=== PATIENT | female | born 1970 | race Caucasian/White ===

== ENCOUNTER → 2020-08-26 14:58 | Outpatient (BNVA) | payer MEDICARE, SELFPAY | PROVIDERS: Visit Provider Anesthesiology | DX: G89.4 Chronic pain syndrome (principal); M51.36 Other intervertebral disc degeneration, lumbar region; G35 Multiple sclerosis; Z79.891 Long term (current) use of opiate analgesic | CPT/HCPCS: 99212 ==

== ENCOUNTER 2020-10-19 05:11 | Outpatient (REF) | payer MEDICARE, SELFPAY | END 2020-10-19 05:12 | disposition home or self-care (01) | LOC: HO.RADIR 05:11 | PROVIDERS: Visit Provider Anesthesiology | DX: Z13.89 Encounter for screening for other disorder (principal) ==

== ENCOUNTER 2021-01-18 06:05 | Outpatient (REF) | payer MEDICARE, SELFPAY | END 2021-01-18 06:06 | disposition home or self-care (01) | LOC: HO.RADIR 06:05 | PROVIDERS: Visit Provider Anesthesiology | DX: Z13.89 Encounter for screening for other disorder (principal) ==

== ENCOUNTER 2021-04-12 06:28 | Outpatient (REF) | payer MEDICARE, SELFPAY | END 2021-04-12 06:29 | disposition home or self-care (01) | LOC: HO.RADIR 06:28 | PROVIDERS: Visit Provider Anesthesiology | DX: Z13.89 Encounter for screening for other disorder (principal) ==

== ENCOUNTER 2021-06-24 09:33 | Day surgery (SDC) | payer MEDICARE, OTHER, SELFPAY ==
--- NOTE | 2021-06-23 09:22 | HO.ANESPROP2 ---
Documented by User: Aixa Hernandez NP 06/23/21 09:24 HPI - Anesthesia Eval Consult details Narrative: 50yo F for Intrathecal Drug Delivery Replacement PMFSH Active Problems Active Problems: All Active Problems (Updated 08/26/20 @ 15:43 by Ravi Garibay MD) terminal make up operator (current) use of opiate analgesic (Acute) Chronic pain syndrome (Acute) Multiple sclerosis (Acute) Disc degeneration, lumbar (Acute) Past Medical History Medical History Chronic pain syndrome Disc degeneration, lumbar senior living (current) use of opiate analgesic Multiple sclerosis Social History Social History Patient Tobacco Use Status: Current everyday Tobacco user Use of substances other than those prescribed or required for medical reasons: No Have you been hit, kicked, punched, or otherwise hurt by someone within the past year? If so, by whom?: No Are you DNR?: No Advance Directives: No Advance Directives Information Provided: Yes Recently lost weight without trying: No Patient : No Meds Allergies Allergy/AdvReac Type Severity Reaction Status Date / Time Iodinated Contrast Media Allergy Severe Swelling Verified 06/24/21 10:23 [Contrast Dye] amitriptyline Allergy unknown Verified 08/26/20 15:08 hydrocodone Allergy unknwn Verified 08/26/20 15:08 ibuprofen Allergy unknown Verified 08/26/20 15:08 nabumetone Allergy unknown Verified 08/26/20 15:08 Home Medications Medication Instructions Recorded Confirmed Last Taken Type loperamide 2 mg capsule 1 cap PO TID PRN 06/17/21 06/17/21 Unknown History Exam Exam Date and Time: June 23, [id number] Assessment and Plan Assessment Anesthesia Assessment: Chart Reviewed Documented by User: Destinee Huffman MD 06/24/21 11:22 PMFSH Past Medical History Medical History Chronic pain syndrome Disc degeneration, 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 If so, by whom?: No Are you DNR?: No Advance Directives: No Advance Directives Information Provided: Yes Recently lost weight without trying: No Patient : No Meds Allergies Allergy/AdvReac Type Severity Reaction Status Date / Time Iodinated Contrast Media Allergy Severe Swelling Verified 06/24/21 10:23 [Contrast Dye] amitriptyline Allergy unknown Verified 08/26/20 15:08 hydrocodone Allergy unknwn Verified 08/26/20 15:08 ibuprofen Allergy unknown Verified 08/26/20 15:08 nabumetone Allergy unknown Verified 08/26/20 15:08 Home Medications Medication Instructions Recorded Confirmed Last Taken Type loperamide 2 mg capsule 1 cap PO TID PRN 06/17/21 06/17/21 Unknown History Exam Airway Mallampati Class: II TM Dist: >3cm Neck ROM: Full Assessment and Plan Assessment Anesthesia Assessment: Anesthesia Plan Discussed Final Anesthetic Review Family History of Problems with Anesthesia: No History of Problems with Anesthesia: No NPO: Yes ASA Class: III Final Preanesthetic Review: No Changes in Pt Med Stat, Meds/Allgs Chart Reviewed, Consent Obtained/Reviewed and Anes Risks/Benef Reviewed Patient Risk: Intermediate Procedure Risk: Low Anesthetic Plan Anesthetic Plan: GA Disposition: Standard PACU
--- NOTE | ~2021-06-24 | FL_ITS ---
EXAMINATION: XR FLUOROSCOPY WITH IMAGES CLINICAL INFORMATION: IDD replacement. COMPARISON: None. TECHNIQUE: Fluoroscopy performed by Dr. Ravi Garibay. Fluoroscopy time: 0.0 minutes DAP: 0.0255 mGycm2 Images: 1 FINDINGS: The submitted image shows an intrathecal pain pump projecting over the right lumbosacral region. FL/FL guidance in OR IMPRESSION: Intraoperative fluoroscopic guidance is provided during intrathecal pain pump replacement. Please see Operative Report for full procedural details.
[2021-06-24 09:46] VITALS: BP 156/97; PULSE 77; RESP 18; TEMP 36.4; O2SAT 97; BMI 36.5
--- NOTE | 2021-06-24 10:01 | MHC.SHP ---
Pre-Procedural Eval Section A Date of Service: 06/24/21 The patient is an INPATIENT: No Changes since office visit: Yes Patient answered all questions The History & Physical has been completed within 30 days and I have reviewed it.: No Section B Chief Complaint: chronic pain syndrome Details of Present Illness: As above Relevant Family History (Specify if Yes): No Relevant Social History: None Present Medications: see Short Stay Collaborative assessment Medical History: No relevant PMH History of Previous Operations: No relevant previous surgery Allergies: Allergies Allergy/AdvReac Type Severity Reaction Status Date / Time amitriptyline Allergy unknown Verified 08/26/20 15:08 hydrocodone Allergy unknwn Verified 08/26/20 15:08 ibuprofen Allergy unknown Verified 08/26/20 15:08 nabumetone Allergy unknown Verified 08/26/20 15:08 Review of Systems Sugical H&P ROS: Negative: Constitution, Cardiovascular, Respiratory, Neurological, Psychiatric, Hem-Onc, Allergic/Immunologic, Gastrointestinal, Genitourinary, Musculoskeletal, Integumentary, Endocrine and Eyes/Ears/Nose/Throat Exam Surgical H&P Exam: Normal: HEENT, Normal: Heart, Normal: Lungs, Normal: Extremities, Normal: Abdomen, Normal: Skin and Normal: Neurological Plan Diagnosis/Plan: Unchanged I have reviewed the history and physical and performed a pertinent physical examination on my patient. No changes have occurred unless specified.
[2021-06-24 10:03] LABS: UPreg QC Valid YES; Urine Pregnancy NEGATIVE (NEGATIVE)
[2021-06-24] MEDS: Lactated Ringers 1,000 ML 100 ML IVCONT (10:03)
--- NOTE | 2021-06-24 11:45 | MHC.SHP ---
Pre-Procedural Eval Section A Date of Service: 06/24/21 The patient is an INPATIENT: No Changes since office visit: Yes Patient answered all questions The History & Physical has been completed within 30 days and I have reviewed it.: No Section B Chief Complaint: chronic pain syndrome Details of Present Illness: This patient is 50 years old female who is suffering from chronic pain syndrome which is being treated by intrathecal drug delivery system pain pump. She came today to the operating room for replacement of the pump. Her intrathecal catheter seem to be working appropriately. She is on 66 micro g of fentanyl daily and it helps a lot her condition Relevant Family History (Specify if Yes): No Relevant Social History: None Present Medications: None Medical History: No relevant PMH History of Previous Operations: No relevant previous surgery Allergies: Allergies Allergy/AdvReac Type Severity Reaction Status Date / Time Iodinated Contrast Media Allergy Severe Swelling Verified 06/24/21 10:23 [Contrast Dye] amitriptyline Allergy unknown Verified 08/26/20 15:08 hydrocodone Allergy unknwn Verified 08/26/20 15:08 ibuprofen Allergy unknown Verified 08/26/20 15:08 nabumetone Allergy unknown Verified 08/26/20 15:08 Review of Systems Sugical H&P ROS: Negative: Constitution, Cardiovascular, Respiratory, Neurological, Psychiatric, Hem-Onc, Allergic/Immunologic, Gastrointestinal, Genitourinary, Musculoskeletal, Integumentary, Endocrine and Eyes/Ears/Nose/Throat Exam Surgical H&P Exam: Normal: HEENT, Normal: Heart, Normal: Lungs, Normal: Extremities, Normal: Abdomen, Normal: Skin and Normal: Neurological Plan Diagnosis/Plan: Unchanged I have reviewed the history and physical and performed a pertinent physical examination on my patient. No changes have occurred unless specified.
[2021-06-24 13:20] VITALS: BP 152/96; PULSE 88; RESP 20; TEMP 36.3; O2SAT 99
--- NOTE | 2021-06-24 13:22 | PM.OP ---
Brief Operative Note Date of Service: 06/24/21 Surgeon: Ravi Garibay MD Anesthesia: GETA Was an Business Reporter used for this Procedure?: No Estimated blood loss (mL): 30 Pathology: none sent Condition: stable Disposition: PACU
--- NOTE | 2021-06-24 13:23 | P.OP_ITS ---
Operative Note Operative Note Date of Service: 06/24/21 Narrative: Alejandro is very pleasant 50 years old female who came today to the operating room compound for replacement of intrathecal drug delivery system pain pump due to end of life of the previous pump device. After explaining formed consent the patient was taking to the operating room and [place] [employer] was applied. General anesthesia was induced with endotracheal intubation performed. The patient was repositioned prone on the operating table. All pressure points were protected. Time-out was was performed delineating correct name date of of the patient correct site and side of the procedure need for DVT prophylaxis need for antibiotic prophylaxis, risk of fire. The lower back of the patient in the area of the patient's pump in the upper right buttock were prepped with ChloraPrep and draped with full body drape including Ioban film. After that sterilely draped C-arm was brought of the operating field and picture of the patient's pump was demonstrated on the screen. After that local anesthetic was injected in projection of the previously made scar. Ten blade scalpel was used to make incision along side the previous scar. The wound was deepened and widened using electrocautery dissection until the body of the pump was discovered. The anchoring sutures were severed and the pump was delivered to the surface of the skin. Intrathecal catheter was freed from adhesions and disconnected from the pump. Thorough hemostasis on the wound was performed again and regain lombardi was performed on the wound and cut with vancomycin containing normal saline. After that the intrathecal catheter was freed from adhesions and connective tissue it appears to be that clear flow CSF was coming from the catheter. New pump which was filled with 19 cc of fentanyl solution preservative-free 450 micro g per mL was brought on the operating table and prepped to be ready for implantation. Sutureless connector was connected to the speak it of the pump, noncoring 25 gauge needle was used to aspirate side port of the pump demonstrating fluid flow CSF. After that 2 anchoring sutures were applied to most superior lateral insist most superior medial corners of the wound they were passed through the corresponding brackets on the body of the pump. After that the intrathecal pump was dislodged into the wound and anchoring sutures were tied. The anchor sutures were Tycron 1.0. After that the side port of the pump was again accessed with 25 gauge noncoring needle mounted on 3 cc syringe in aspiration was made demonstrating free flow CSF. Hemostasis was checked and thorough irrigation was repeated. After that 0 Polysorb sutures was used to close the pocket of the pump and 2 0 Polysorb sutures were used to approximate the level of the skin. [place] were applied to the level of the skin. Bacitracin was applied to staple level. Sterile dressing with Tegaderm was applied. The patient tolerated procedure fairly well. She was extubated transferred to PACU for recovery she recovered uneventfully. She went home without immediate complications.
[2021-06-24 13:25] VITALS: BP 156/81; PULSE 85; RESP 18; O2SAT 98
[2021-06-24 13:30] VITALS: BP 154/75; PULSE 79; RESP 20; O2SAT 100
[2021-06-24 13:35] VITALS: BP 149/68; PULSE 82; RESP 20; O2SAT 100
[2021-06-24 13:50] VITALS: BP 150/87; PULSE 74; RESP 20; TEMP 36.3; O2SAT 99
== END 2021-06-24 14:12 | disposition home or self-care (01) ==
PROVIDERS: Nurse Practitioner; Visit Provider Anesthesiology
PROC: (CPT 62362; principal; 2021-06-24 11:00)
DX: G89.4 Chronic pain syndrome (principal); M51.36 Other intervertebral disc degeneration, lumbar region; G35 Multiple sclerosis; Z79.891 Long term (current) use of opiate analgesic
CPT/HCPCS: 62362; 81025; C1772; J0690; J1100; J2250; J2405; J3010; J3370

== ENCOUNTER → 2021-06-30 09:06 | Outpatient (BNVA) | payer MEDICARE, OTHER, SELFPAY | PROVIDERS: Visit Provider Anesthesiology | DX: M51.36 Other intervertebral disc degeneration, lumbar region (principal); G35 Multiple sclerosis; G89.4 Chronic pain syndrome; Z79.891 Long term (current) use of opiate analgesic | CPT/HCPCS: 99212 ==

== ENCOUNTER → 2021-07-07 09:29 | Outpatient (BNVA) | payer MEDICARE, OTHER, SELFPAY | PROVIDERS: Visit Provider Anesthesiology | DX: M51.36 Other intervertebral disc degeneration, lumbar region (principal); G35 Multiple sclerosis; G89.4 Chronic pain syndrome; Z79.891 Long term (current) use of opiate analgesic | CPT/HCPCS: 99212 ==

== ENCOUNTER → 2022-10-16 10:26 | Outpatient (BNVA) | payer MEDICARE, MEDICAID, SELFPAY | PROVIDERS: Visit Provider Anesthesiology | DX: M51.36 Other intervertebral disc degeneration, lumbar region (principal); G35 Multiple sclerosis; G89.4 Chronic pain syndrome; Z79.891 Long term (current) use of opiate analgesic | CPT/HCPCS: 99212 ==

== ENCOUNTER 2023-11-05 09:57 | Outpatient (AMB) | payer MEDICARE, MEDICAID, SELFPAY ==
--- NOTE | 2023-11-05 10:20 | MHC.OFFVIS ---
Intake Vital Signs 11/05/23 10:21 Height 5 ft 8 in Weight 237 lb 2 oz BMI 36.1 BP 140/102 H Blood Pressure Location Rt brachial Position Sitting Respiration 14 Pulse 83 Pulse Source Pulse Oximeter Pulse Oximetry (%) 97 Oxygen Delivery Method Room Air Intake Visit Reasons: 1 Y Follow up Allergies Iodinated Contrast Media [Contrast Dye] Allergy (Severe, Verified 11/05/23 10:21) Swelling amitriptyline Allergy (Verified 11/05/23 10:21) unknown hydrocodone Allergy (Verified 11/05/23 10:21) unknwn ibuprofen Allergy (Verified 11/05/23 10:21) unknown nabumetone Allergy (Verified 11/05/23 10:21) unknown HPI HPI Comments History of Present Illness Details Alejandro is very pleasant 49 years old female who presents in my office with complains on lower back pain which was treated with intrathecal drug delivery system pain pump.? The pump was inserted in [place], it was due to be replaced in this year so she went for the removal of the old pump due to end of life of the machine and replacement with the new SynchroMed 2 [employer] pain pump. Her pump is being refilled at home. She is receiving tizanidine and gabapentin from this office. Requests me to renew those medications. It was refilled 1 year ago. She denies any side effects. She denies weakness, drowsiness dizziness, sleepiness. She denies peripheral edema. Prior: she reports that symptoms are aggravated by walking and movement and relieved by lying down and medication in the pump.? She is doing regularly refills once in 3 months.? The concentration of the medication in the pump is 450 micro g of fentanyl perform mL she is receiving 66 micro g of fentanyl a day and she is able to do to PTM doses a day 0.06 micro g of fentanyl a day.? She can delivered those doses to herself 4 hours apart.? 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 Multiple sclerosis Social History Patient Tobacco Use Status: Current everyday Tobacco user Review of Systems Const All systems reviewed & are unremarkable except as noted in HPI and below ENT Reports Normal hearing present Neuro Reports Normal hearing present Physical Exam Vital Signs: Last Vital Signs Pulse 83 11/05/23 10:21 Resp 14 11/05/23 10:21 BP 140/102 H 11/05/23 10:21 Pulse Ox 97 11/05/23 10:21 Oxygen Delivery Method Room Air 11/05/23 10:21 BMI result Body Mass Index 36.1 Const General: comfortable, alert and awake Eyes Pupils: Equal, round and reactive pupils present EOM: EOMs intact bilaterally Chest Chest palpation & inspection: normal inspection of the chest Resp Effort & Inspection: able to speak in complete sentences, normal respiratory pattern, no audible wheezes and no cough Cardio Jugular venous distension: no JVD General: Yes no CVA tenderness Back/Spine/Pelvis Back: no CVA tenderness Cervical Spine: No pain with cervical ROM Thoracic/Lumbar Spine: Thoracic/lumbar spine scar(s) ( ) Neuro Cranial nerves: Yes Equal, round and reactive pupils present and Yes Normal hearing present Extrem General: Yes full ROM and Yes no joint enlargement Assessment & Plan Assessment & Plan (1) Disc degeneration, lumbar: Code(s): M51.36 - Other intervertebral disc degeneration, lumbar region (2) Multiple sclerosis: Code(s): G35 - Multiple sclerosis (3) Chronic pain syndrome: Code(s): G89.4 - Chronic pain syndrome (4) 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 I will see her as needed as well as in 1 year. 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
[2023-11-05 10:21] VITALS: BP 140/102; PULSE 83; RESP 14; O2SAT 97; BMI 36.1
== END 2023-11-05 10:26 | disposition home or self-care (01) ==
PROVIDERS: PCP Internal Medicine; Referring Provider Internal Medicine; Visit Provider Anesthesiology
DX: G89.4 Chronic pain syndrome (principal); G35 Multiple sclerosis; M51.36 Other intervertebral disc degeneration, lumbar region; Z79.891 Long term (current) use of opiate analgesic
CPT/HCPCS: 99213

== ENCOUNTER → 2023-11-05 09:57 | Outpatient (BNVA) | payer MEDICARE, MEDICAID, SELFPAY | PROVIDERS: PCP Internal Medicine; Visit Provider Anesthesiology | DX: M51.36 Other intervertebral disc degeneration, lumbar region (principal); G35 Multiple sclerosis; G89.4 Chronic pain syndrome; Z79.891 Long term (current) use of opiate analgesic | CPT/HCPCS: 99212 ==

== ENCOUNTER 2024-09-29 13:01 | Outpatient (AMB) | payer MEDICARE, MEDICAID, SELFPAY ==
--- NOTE | 2024-09-29 13:01 | A.OFFVIS_ITS ---
Vital Signs 09/29/24 13:41 Height 5 ft 8 in Weight 219 lb BMI 33.3 BP 139/79 Blood Pressure Location Lt brachial Position Sitting Respiration 16 Pulse 78 Pulse Source Pulse Oximeter Pulse Oximetry (%) 96 Oxygen Delivery Method Room Air Intake Visit Reasons: Pain pump refill Intake Note: Patient comes in for intrathecal medication refill. Reports pain 5/10. Allergies Iodinated Contrast Media [Contrast Dye] Allergy (Severe, Verified 09/29/24 13:42) Swelling amitriptyline Allergy (Verified 09/29/24 13:42) unknown hydrocodone Allergy (Verified 09/29/24 13:42) unknwn ibuprofen Allergy (Verified 09/29/24 13:42) unknown nabumetone Allergy (Verified 09/29/24 13:42) unknown HPI Comments Details: Alejandro is back in my office to receive intrathecal pain pump. The pump is for lower back pain, inserted in [place], the replacement of the pump is done by me at 06/24/2021. It is SynchroMed 2 machine. She no longer is in home refilled program and she will be coming to this office to refill her pain pump. She feels very comfortable with current infusion. Prior: she reports that symptoms are aggravated by walking and movement and relieved by lying down and medication in the pump.? She is doing regularly refills once in 3 months.? The concentration of the medication in the pump is 450 micro g of fentanyl perform mL she is receiving 66 micro g of fentanyl a day and she is able to do to PTM doses a day 0.06 micro g of fentanyl a day.? She can delivered those doses to herself 4 hours apart.? Her refill date at maximum activation [facility] Medical History Chronic pain syndrome Disc degeneration, lumbar half-way (current) use of opiate analgesic Multiple sclerosis Social History Patient Tobacco Use Status: Current everyday Tobacco user Review of Systems Const All systems reviewed & are unremarkable except as noted in HPI and below ENT Reports Normal hearing present Neuro Reports Normal hearing present Physical Exam Const General: comfortable, alert and awake Eyes Pupils: Equal, round and reactive pupils present EOM: EOMs intact bilaterally Chest Chest palpation & inspection: normal inspection of the chest Resp Effort & Inspection: able to speak in complete sentences, normal respiratory pattern, no audible wheezes and no cough Cardio Jugular venous distension: no JVD General: Yes no CVA tenderness Back/Spine/Pelvis Back: no CVA tenderness Cervical Spine: No pain with cervical ROM Thoracic/Lumbar Spine: Thoracic/lumbar spine scar(s) ( ) Neuro Cranial nerves: Yes Equal, round and reactive pupils present and Yes Normal hearing present Extrem General: Yes full ROM and Yes no joint enlargement Assessment & Plan Assessment & Plan (1) Disc degeneration, lumbar: Code(s): M51.36 - Other intervertebral disc degeneration, lumbar region Category: Medical (2) Multiple sclerosis: Code(s): G35 - Multiple sclerosis Category: Medical (3) Chronic pain syndrome: Code(s): G89.4 - Chronic pain syndrome Category: Medical (4) half-way (current) use of opiate analgesic: Code(s): Z79.891 - half-way (current) use of opiate analgesic Category: Medical Plan: Next pump refill will be scheduled on 12/28/2024, she will receive her usual dose of fentanyl concentration 450 micro g per mL in 20 mL of preservative-free normal saline. Plan Intrathecal pump refill. THE PATIENT CAME TODAY IN THE OR - PACU FOR THE CHANGE OF THE MEDICATION IN her PAIN PUMP. The name and date of were verified and informed consent was obtained for the procedure. The pump was interrogated and the residual amount of fluid was found to be 7.4 mL. SHE WAS POSITIONED right side up lateral on the bed AND THE AREA OF THE INTRATHECAL PUMP WAS PREPPED WITH CHLORAPREP. The fenestrated drape was sterilely applied over the area of the pump. Sterile gloves were worn and of the aspiration system was assembled containing 2 in 22 gauge noncoring needle, the needle was connected to extension tubing which was connected to the 20 cc sterile syringe. The pain pump was palpated under the skin in the patient's right buttock area. The needle was inserted through the skin and the central plug of the pain pump and fluid was aspirated. two attempts were made to reach the silicone plug of the pump.The clear fluid was going into the syringe the total amount of the fluid was 7.2 mL .. After that a new batch of medication was obtained . The admixture was made in 20 cc syringe prepared by [facility] compounding pharmacy. The syringe was connected to the bacterial filter, and then connected to the extension tubing. After that the medication in the syringe was slowly instilled into the pump with aspirations at 15 and 5 cc davis. Patient receives 66 micro g of fentanyl in 24 hours, she is able to receive bolus of 0.06 micro g of fentanyl up to 2 boluses a day. Coding Level of Care Code Est Pt Level 3 (05661) Procedure Only Diagnoses Disc degeneration, lumbar M51.36 Multiple sclerosis G35 Chronic pain syndrome G89.4 terminal superintendent (current) use of opiate analgesic Z79.891
[2024-09-29 13:41] VITALS: BP 139/79; PULSE 78; RESP 16; O2SAT 96; BMI 33.3
== END 2024-09-29 13:35 | disposition home or self-care (01) ==
PROVIDERS: PCP Internal Medicine; Visit Provider Anesthesiology
DX: M51.369 Other intervertebral disc degeneration, lumbar region without mention of lumbar back pain or lower extremity pain (principal); G35 Multiple sclerosis; G89.4 Chronic pain syndrome; Z79.891 Long term (current) use of opiate analgesic; Z45.1 Encounter for adjustment and management of infusion pump
CPT/HCPCS: 95991; 99213

== ENCOUNTER → 2024-09-29 13:01 | Outpatient (BNVA) | payer MEDICARE, MEDICAID, SELFPAY | PROVIDERS: PCP Internal Medicine; Visit Provider Anesthesiology | DX: M51.369 Other intervertebral disc degeneration, lumbar region without mention of lumbar back pain or lower extremity pain (principal); G35 Multiple sclerosis; G89.4 Chronic pain syndrome; Z45.1 Encounter for adjustment and management of infusion pump; Z79.891 Long term (current) use of opiate analgesic | CPT/HCPCS: 99212 ==

== ENCOUNTER 2024-12-29 13:02 | Outpatient (AMB) | payer MEDICARE, MEDICAID, SELFPAY ==
--- NOTE | 2024-12-29 13:03 | MHC.OFFVIS ---
Vital Signs 12/29/24 13:19 Height 5 ft 8 in Weight 217 lb BMI 33.0 BP 141/92 H Blood Pressure Location Lt brachial Position Sitting Pulse 83 Pulse Source Pulse Oximeter Pulse Oximetry (%) 97 Oxygen Delivery Method Room Air Intake Visit Reasons: ITDD Refill Intake Note: Pain today 03/07 Drying Room Attendant Required: No Personal Lines Insurance Agent: Personal Lines Insurance Agent Present Accompanied by: Self / Same As Patient Allergies Iodinated Contrast Media [Contrast Dye] Allergy (Severe, Verified 12/29/24 13:19) Swelling amitriptyline Allergy (Verified 12/29/24 13:19) unknown hydrocodone Allergy (Verified 12/29/24 13:19) unknwn ibuprofen Allergy (Verified 12/29/24 13:19) unknown nabumetone Allergy (Verified 12/29/24 13:19) unknown HPI Comments Details: Alejandro is back in my office to receive intrathecal pain pump. she reports very low level of pain today, excellent mobility excellent activities of daily living. She reports pump action improves her pain significantly.? She is doing regularly refills once in 3 months.? The concentration of the medication in the pump is 450 micro g of fentanyl perform mL she is receiving 66 micro g of fentanyl a day and she is able to do to PTM doses a day 0.06 micro g of fentanyl a day.? She can delivered those doses to herself 4 hours apart.? Her refill date is 04/09/2025. This pain pump was replaced on 06/24/2021. 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 Multiple sclerosis Social History Patient Tobacco Use Status: Current everyday Tobacco user Review of Systems Const All systems reviewed & are unremarkable except as noted in HPI and below ENT Reports Normal hearing present Neuro Reports Normal hearing present Physical Exam Vital Signs: Last Vital Signs Pulse 83 12/29/24 13:19 BP 141/92 H 12/29/24 13:19 Pulse Ox 97 12/29/24 13:19 Oxygen Delivery Method Room Air 12/29/24 13:19 BMI result Body Mass Index 33.0 Const General: comfortable, alert and awake Eyes Pupils: Equal, round and reactive pupils present EOM: EOMs intact bilaterally Chest Chest palpation & inspection: normal inspection of the chest Resp Effort & Inspection: able to speak in complete sentences, normal respiratory pattern, no audible wheezes and no cough Cardio Jugular venous distension: no JVD General: Yes no CVA tenderness Back/Spine/Pelvis Back: no CVA tenderness Cervical Spine: No pain with cervical ROM Thoracic/Lumbar Spine: Thoracic/lumbar spine scar(s) ( ) Neuro Cranial nerves: Yes Equal, round and reactive pupils present and Yes Normal hearing present Extrem General: Yes full ROM and Yes no joint enlargement Assessment & Plan Assessment & Plan (1) Disc degeneration, lumbar: Code(s): M51.36 - Other intervertebral disc degeneration, lumbar region Category: Medical (2) Multiple sclerosis: Code(s): G35 - Multiple sclerosis Category: Medical (3) Chronic pain syndrome: Code(s): G89.4 - Chronic pain syndrome Category: Medical (4) skilled nursing (current) use of opiate analgesic: Code(s): Z79.891 - 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 Plan Intrathecal pump refill. The patient came today in the office FOR THE CHANGE OF THE MEDICATION IN her PAIN PUMP. The name and date of were verified and informed consent was obtained for the procedure. The pump was interrogated and the residual amount of fluid was found to be 6.1 mL. SHE WAS POSITIONED right side up lateral on the bed AND THE AREA OF THE INTRATHECAL PUMP WAS PREPPED WITH CHLORAPREP. The fenestrated drape was sterilely applied over the area of the pump. Sterile gloves were worn and of the aspiration system was assembled containing 2 in 22 gauge noncoring needle, the needle was connected to extension tubing which was connected to the 20 cc sterile syringe. The pain pump was palpated under the skin in the patient's right buttock area. The needle was inserted through the skin and the central plug of the pain pump and fluid was aspirated. two attempts were made to reach the silicone plug of the pump.The clear fluid was going into the syringe the total amount of the fluid was 6.4 mL .. After that a new batch of medication was obtained . The admixture was made in 20 cc syringe prepared by [facility] compounding pharmacy. The syringe was connected to the bacterial filter, and then connected to the extension tubing. After that the medication in the syringe was slowly instilled into the pump with aspirations at 15 and 5 cc davis. Patient receives 66 micro g of fentanyl in 24 hours, she is able to receive bolus of 0.06 micro g of fentanyl up to 2 boluses a day. Coding Level of Care Code Est Pt Level 3 (56235) Procedure Only Diagnoses Disc degeneration, lumbar M51.36 Multiple sclerosis G35 Chronic pain syndrome G89.4 skilled nursing (current) use of opiate analgesic Z79.891
[2024-12-29 13:19] VITALS: BP 141/92; PULSE 83; O2SAT 97; BMI 33.0
== END 2024-12-29 13:21 | disposition home or self-care (01) ==
PROVIDERS: PCP Internal Medicine; Visit Provider Anesthesiology
DX: G89.4 Chronic pain syndrome (principal); M51.369 Other intervertebral disc degeneration, lumbar region without mention of lumbar back pain or lower extremity pain; G35 Multiple sclerosis; Z79.891 Long term (current) use of opiate analgesic; Z45.1 Encounter for adjustment and management of infusion pump
CPT/HCPCS: 95991; 99213

== ENCOUNTER → 2024-12-29 13:02 | Outpatient (BNVA) | payer MEDICARE, MEDICAID, SELFPAY | PROVIDERS: PCP Internal Medicine; Visit Provider Anesthesiology | DX: G35 Multiple sclerosis (principal); G89.4 Chronic pain syndrome; M51.369 Other intervertebral disc degeneration, lumbar region without mention of lumbar back pain or lower extremity pain; Z79.891 Long term (current) use of opiate analgesic | CPT/HCPCS: 99212 ==

== ENCOUNTER 2025-04-07 06:11 | Outpatient (REF) | payer MEDICARE, MEDICAID, SELFPAY | END 2025-04-07 06:12 | disposition home or self-care (01) | LOC: CF 06:11 | PROVIDERS: Visit Provider Anesthesiology | DX: Z45.1 Encounter for adjustment and management of infusion pump (principal); M51.369 Other intervertebral disc degeneration, lumbar region without mention of lumbar back pain or lower extremity pain; G35 Multiple sclerosis; G89.4 Chronic pain syndrome; Z79.891 Long term (current) use of opiate analgesic | CPT/HCPCS: 62370 ==

== ENCOUNTER 2025-04-07 12:58 | Outpatient (AMB) | payer MEDICARE, MEDICAID, SELFPAY ==
[2025-04-07 13:14] VITALS: BP 141/89; PULSE 84; RESP 16; O2SAT 96
--- NOTE | 2025-04-07 13:14 | A.OFFVIS_ITS ---
Vital Signs 04/07/25 13:14 Weight 210 lb BP 141/89 H Blood Pressure Location Lt brachial Position Sitting Respiration 16 Pulse 84 Pulse Source Pulse Oximeter Pulse Oximetry (%) 96 Oxygen Delivery Method Room Air Intake Visit Reasons: ITDD Pump refill Documentum Consultant Required: No Allergies Iodinated Contrast Media [Contrast Dye] Allergy (Severe, Verified 04/07/25 13:15) Swelling amitriptyline Allergy (Verified 04/07/25 13:15) unknown hydrocodone Allergy (Verified 04/07/25 13:15) unknwn ibuprofen Allergy (Verified 04/07/25 13:15) unknown nabumetone Allergy (Verified 04/07/25 13:15) unknown [facility] Medical History Chronic pain syndrome Disc degeneration, lumbar penitentiary (current) use of opiate analgesic Multiple sclerosis Social History Patient Tobacco Use Status: Current everyday Tobacco user Physical Exam Vital Signs: Last Vital Signs Pulse 84 04/07/25 13:14 Resp 16 04/07/25 13:14 BP 141/89 H 04/07/25 13:14 Pulse Ox 96 04/07/25 13:14 Oxygen Delivery Method Room Air 04/07/25 13:14 Assessment & Plan Assessment & Plan (1) Disc degeneration, lumbar: Code(s): M51.36 - Other intervertebral disc degeneration, lumbar region Category: Medical (2) Multiple sclerosis: Code(s): G35 - Multiple sclerosis Category: Medical (3) Chronic pain syndrome: Code(s): G89.4 - Chronic pain syndrome Category: Medical (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 Plan Intrathecal pump refill. The patient came today in the office FOR THE CHANGE OF THE MEDICATION IN her PAIN PUMP. The name and date of were verified and informed consent was obtained for the procedure. The pump was interrogated and the residual amount of fluid was found to be 5 mL. SHE WAS POSITIONED right side up lateral on the bed AND THE AREA OF THE INTRATHECAL PUMP WAS PREPPED WITH CHLORAPREP. The fenestrated drape was sterilely applied over the area of the pump. Sterile gloves were worn and of the aspiration system was assembled containing 2 in 22 gauge noncoring needle, the needle was connected to extension tubing which was connected to the 20 cc sterile syringe. The pain pump was palpated under the skin in the patient's right buttock area. The needle was inserted through the skin and the central plug of the pain pump and fluid was aspirated. two attempts were made to reach the silicone plug of the pump.The clear fluid was going into the syringe the total amount of the fluid was 5 mL .. After that a new batch of medication was obtained . The admixture was made in 20 cc syringe prepared by [facility] compounding pharmacy. The syringe was connected to the bacterial filter, and then connected to the extension tubing. After that the medication in the syringe was slowly instilled into the pump with aspirations at 15 and 5 cc davis. Patient receives 66 micro g of fentanyl in 24 hours, she is able to receive bolus of 0.06 micro g of fentanyl up to 2 boluses a day. Coding Level of Care Code Procedure Only Diagnoses Disc degeneration, lumbar M51.36 Multiple sclerosis G35 Chronic pain syndrome G89.4 penitentiary (current) use of opiate analgesic Z79.891
== END 2025-04-07 13:45 | disposition home or self-care (01) ==
LOC: HO.PMCPRC 12:58
PROVIDERS: PCP Internal Medicine; Visit Provider Anesthesiology
DX: M51.369 Other intervertebral disc degeneration, lumbar region without mention of lumbar back pain or lower extremity pain (principal); G35 Multiple sclerosis; G89.4 Chronic pain syndrome; Z45.1 Encounter for adjustment and management of infusion pump
CPT/HCPCS: 62370

== ENCOUNTER 2025-07-30 13:13 | Outpatient (AMB) | payer MEDICARE, MEDICAID, SELFPAY ==
--- NOTE | 2025-07-30 13:22 | MHC.OFFVIS ---
Vital Signs 07/30/25 13:25 Weight 213 lb BP 141/90 H Blood Pressure Location Lt brachial Position Sitting Respiration 18 Pulse 80 Pulse Source Pulse Oximeter Pulse Oximetry (%) 98 Oxygen Delivery Method Room Air Intake Visit Reasons: ITDD REFILL Allergies Iodinated Contrast Media (Contrast Dye) Allergy (Severe, Verified 07/30/25 13:22) Swelling amitriptyline Allergy (Verified 07/30/25 13:22) unknown hydrocodone Allergy (Verified 07/30/25 13:22) unknwn ibuprofen Allergy (Verified 07/30/25 13:22) unknown nabumetone Allergy (Verified 07/30/25 13:22) unknown [facility] Medical History Chronic pain syndrome Disc degeneration, lumbar detention (current) use of opiate analgesic Multiple sclerosis Social History Patient Tobacco Use Status: Current everyday Tobacco user Physical Exam Vital Signs: Last Vital Signs Pulse 80 07/30/25 13:25 Resp 18 07/30/25 13:25 BP 141/90 H 07/30/25 13:25 Pulse Ox 98 07/30/25 13:25 Oxygen Delivery Method Room Air 07/30/25 13:25 Assessment & Plan Assessment & Plan (1) Disc degeneration, lumbar: Code(s): M51.36 - Other intervertebral disc degeneration, lumbar region Category: Medical (2) Multiple sclerosis: Code(s): G35 - Multiple sclerosis Category: Medical (3) Chronic pain syndrome: Code(s): G89.4 - Chronic pain syndrome Category: Medical (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 Plan Intrathecal pump refill. The patient came today in the office FOR THE CHANGE OF THE MEDICATION IN her PAIN PUMP. The name and date of were verified and informed consent was obtained for the procedure. The pump was interrogated and the residual amount of fluid was found to be 2.5 mL. SHE WAS POSITIONED right side up lateral on the bed AND THE AREA OF THE INTRATHECAL PUMP WAS PREPPED WITH CHLORAPREP. The fenestrated drape was sterilely applied over the area of the pump. Sterile gloves were worn and of the aspiration system was assembled containing 2 in 22 gauge noncoring needle, the needle was connected to extension tubing which was connected to the 20 cc sterile syringe. The pain pump was palpated under the skin in the patient's right buttock area. The needle was inserted through the skin and the central plug of the pain pump and fluid was aspirated. two attempts were made to reach the silicone plug of the pump.The clear fluid was going into the syringe the total amount of the fluid was 3.1 mL .. After that a new batch of medication was obtained . The admixture was made in 20 cc syringe prepared by [facility] compounding pharmacy. The syringe was connected to the bacterial filter, and then connected to the extension tubing. After that the medication in the syringe was slowly instilled into the pump with aspirations at 15 and 5 cc davis. Patient receives 66 micro g of fentanyl in 24 hours, she is able to receive bolus of 0.06 micro g of fentanyl up to 2 boluses a day. Coding Level of Care Code Procedure Only Diagnoses Disc degeneration, lumbar M51.36 Multiple sclerosis G35 Chronic pain syndrome G89.4 detention (current) use of opiate analgesic Z79.891
[2025-07-30 13:25] VITALS: BP 141/90; PULSE 80; RESP 18; O2SAT 98
--- OUTSIDE RECORDS SUMMARY | 2025-07-30 14:42 | XMS_ITS | Clinical Summary ---
Author Organization [facility] [address] Address [address] [place] [address] Phone Care Team Providers Care Modeling Teacher Name Role Phone Yenifer Woods MD Primary Care Provider Encounters Date Type Department Care Team Description 06/15/2025 1:23 PM EDT - 06/15/2025 11:59 PM EDT Hospital Encounter [facility] CT Scan [address] [place] [address] Encounter for screening for malignant neoplasm of respiratory organs; Nicotine dependence, cigarettes, uncomplicated Discharge Disposition: Home or Self Care 05/14/2025 Telephone Lung Screening Program - [place] [address] [facility] [address] [place] [address] Noemi Veloz MA from Last 3 Months Surgical History Surgery Date Site/Laterality Comments COLONOSCOPY 02/07/2022 PROCEDURE: HISTORICAL COLONOSCOPY CHOLECYSTECTOMY PROCEDURE: HISTORICAL CHOLECYSTECTOMY OTHER SURGICAL HISTORY PROCEDURE: REFERRAL TO INTERVENTIONAL RADIOLOGY Medical History Medical History Date Comments Allergies DX:Allergies Chronic back pain DX:Chronic rebecca k pain Giardiasis DX:Giardiasis History of colon polyps DX:Histo ry of colon polyps Essential (primary) hypertension DX:Essential (primary) hypertension Hyperlipidemia DX:Hyperlipidemi a IBS (irritable bowel syndrome) D X:IBS (irritable bowel syndrome) Vitamin B12 deficiency DX:Vitami n B12 deficiency Multiple sclerosis DX:Multiple s clerosis (HCC) Obese DX:Obese Optic neuritis DX:Optic neuriti s Cigarette smoker DX:Cigarette sm oker Family History Medical History Relation Name Comments Diabetes Maternal Grandmother Stroke Maternal Grandmother Diabetes Mother Hyperthyroidism Mother Other: hyperlip Mother Other cancer Sister Relation Name Status Comments Maternal Grandmother Mother Sister Social History Tobacco Use Types Packs/Day Years Used Date Smoking Tobacco: Every Day Cigarettes 1 25.8 Started: 10/29/1999 Smokeless Tobacco: Never Alcohol Use Standard Drinks/Week Comments Never 0 (1 standard drink = 0.6 oz pur e alcohol) Comments Unknown Sex and Gender Information Value Date Recorded Sex Assigned at Female 06/06/2025 10:11 AM EDT Legal Sex Female 11:41 AM EDT Gender Identity Not on file Sexual Orientation Not on file Obstetrics History Last Filed Vital Signs Vital Sign Reading Time Taken Comments Blood Pressure - - Pulse - - Temperature - - Respiratory Rate - - Oxygen Saturation - - Inhaled Oxygen Concentration - - Weight 105 kg (231 lb) 06/12/2024 1:01 PM EDT Height 175.3 cm (5' 9 ) 06/12/2024 1:01 PM EDT Body Mass Index 34.11 06/12/2024 1:01 PM EDT Plan of Treatment Health Maintenance Due Date Last Done Comments Breast Cancer Screening 1971 DTaP,Tdap,and Td Vaccines (1 - Tdap) 1990 Hepatitis B Vaccines (1 of 3 - 19+ 3-dose series) 1990 Pneumococcal Vaccine: 50+ Years (1 of 2 - PCV) 1990 Cervical Cancer Screening: Pap Smear 1992 Zoster Vaccines (1 of 2) 2021 Cholesterol Screening (Lipid Panel) 08/06/2024 Colorectal Cancer Screening: Colonoscopy 08/06/2024 HIV Screening 08/06/2024 Hepatitis C Screening 08/06/2024 Medicare Annual Wellness Visit 08/06/2024 Social Influencers of Health Screening 08/06/2024 Hypertension/CHF/CAD Annual BMP Blood Test 08/08/2024 Depression Screening 10/29/2024 COVID-19 Vaccine (1 - 2023-2 5 season) 2025 Influenza Vaccine (#1) 2025 Lung Cancer Screening (Low Dose CT) Discontinued 06/15/2025, 06/16/2024 HIB Vaccines Aged Out No longer eligi ble based on patient's age to complete this topic HPV Vaccines Aged Out No longer eligi ble based on patient's age to complete this topic Hepatitis A Vaccines Aged Out No long er eligible based on patient's age to complete this topic IPV Vaccines Aged Out No longer eligi ble based on patient's age to complete this topic MMR Vaccines Aged Out No longer eligi ble based on patient's age to complete this topic Meningococcal ACWY Vaccine Aged Out N o longer eligible based on patient's age to complete this topic Meningococcal B Vaccine Aged Out No l onger eligible based on patient's age to complete this topic RSV Immunization Patients Under 20 months Aged Out No longer eligible based on patient's age to complete this topic Varicella Vaccines Aged Out No longer eligible based on patient's age to complete this topic Procedures Procedure Name Priority Date/Time Associated Diagnosis Comments CT LUNG SCREENING Routine 06/15/2025 1:4 0 PM EDT Encounter for screening for malignant neoplasm of respiratory organs Nicotine dependence, cigarettes, uncomplicated from Last 3 Months Results * CT Lung Screening (06/15/2025 1:40 PM EDT) Anatomical Region Laterality Modality Chest Computed Tomogra phy 06/19/2025 6:55 AM EDT Impressions 06/19/2025 7:04 AM EDT No suspicious mass or nodule. No suspicious interval change LUNG RADS: Lung-RADS 2: BENIGN S Modifier (Significant or Potentially Significant Findings): None present No suspicious nonpulmonary findings. RECOMMENDATIONS: 12 month screening low dose CT -------- FINAL REPORT -------- Dictated By: Onesimo Sheldon Dictated Date: 06/19/2025 06:55 ET Assigned Physician: Onesimo Sheldon Reviewed and Electronically Signed By: Onesimo Sheldon Signed Date: 06/19/2025 07:04 ET Workstation ID: [id number] Transcribed By: Self Edit Transcribed Date: 06/19/2025 06:55 ET Narrative 06/19/2025 7:04 AM EDT EXAMINATION: CT CHEST WITHOUT CONTRAST LUNG CANCER SCREENING, LOW DOSE CLINICAL INFORMATION: Lung cancer screening. Current smoker. COMPARISON: Portions of previous 06/12/24 TECHNIQUE: Multidetector CT. Examination of the chest. Examination of the chest without IV contrast. Reformatting in the coronal and sagittal planes. Device: LockrT DLP: 154 mGy-cm CTDI: 4.83 Dose optimization was performed including the use of low-dose iterative reconstruction technique with automatic exposure control based on patient size. Type of contrast: None Volume of IV contrast: None Volume of contrast discarded: 0 mL FINDINGS: LUNG: No abnormality of the trachea or mainstem bronchi. LUNG NODULES: There are no suspicious nodules or masses. There are some scattered unchanged granulomata. OTHER PULMONARY: There is no honeycomb formation. There is a linear opacity in the posterolateral left lower lobe which could be some atelectasis. Minor reticular opacities adjacent to some lower right-sided thoracic osteophytes. MEDIASTINUM: There are no enlarged mediastinal or hilar lymph nodes. No suspicious abnormalities of the esophagus. Coarse calcified small nodule in right lobe thyroid does not require any specific imaging follow-up. CARDIAC: The heart is not enlarged. No pericardial fluid or thickening There are mild coronary calcifications. VASCULAR: There is no thoracic aortic aneurysm. The main pulmonary artery is normal caliber PLEURA: There is no pleural fluid or pneumothorax AXILLA/CHEST WALL: There are no enlarged axillary lymph nodes. No chest wall mass demonstrated. VISUALIZED UPPER ABDOMEN: No suspicious abnormality on limited assessment of the visualized upper abdomen. Incompletely included low density left adrenal nodule is likely unchanged and does not require any specific imaging follow-up. MUSCULOSKELETAL: No suspicious focal bony lesion demonstrated. Linear density in the left side of the spinal canal unchanged. Correlate with any catheter placement. Procedure Note Onesimo Sheldon MD - 06/19/2025 EXAMINATION: CT CHEST WITHOUT CONTRAST LUNG CANCER SCREENING, LOW DOSE CLINICAL INFORMATION: Lung cancer screening. Current smoker. COMPARISON: Portions of previous 06/12/24 TECHNIQUE: Multidetector CT. Examination of the chest. Examination of the chest without IV contrast. Reformatting in the coronal and sagittal planes. Device: ioBridge VCT DLP: 154 mGy-cm CTDI: 4.83 Dose optimization was performed including the use of low-dose iterativereconstruction technique with automatic exposure control based on patientsize. Type of contrast: None Volume of IV contrast: None Volume of contrast discarded: 0 mL FINDINGS: LUNG: No abnormality of the trachea or mainstem bronchi. LUNG NODULES: There are no suspicious nodules or masses. There are some scattered unchanged granulomata. OTHER PULMONARY: There is no honeycomb formation. There is a linearopacity in the posterolateral left lower lobe which could be someatelectasis. Minor reticular opacities adjacent to some lower right-sidedthoracic osteophytes. MEDIASTINUM: There are no enlarged mediastinal or hilar lymph nodes. Nosuspicious abnormalities of the esophagus. Coarse calcified small nodulein right lobe thyroid does not require any specific imaging follow-up. CARDIAC: The heart is not enlarged. No pericardial fluid or thickening There are mild coronary calcifications. VASCULAR: There is no thoracic aortic aneurysm. The main pulmonary arteryis normal caliber PLEURA: There is no pleural fluid or pneumothorax AXILLA/CHEST WALL: There are no enlarged axillary lymph nodes. No chestwall mass demonstrated. VISUALIZED UPPER ABDOMEN: No suspicious abnormality on limited assessmentof the visualized upper abdomen. Incompletely included low density leftadrenal nodule is likely unchanged and does not require any specificimaging follow-up. MUSCULOSKELETAL: No suspicious focal bony lesion demonstrated. Lineardensity in the left side of the spinal canal unchanged. Correlate withany catheter placement. IMPRESSION: No suspicious mass or nodule. No suspicious interval change LUNG RADS: Lung-RADS 2: BENIGN S Modifier (Significant or Potentially Significant Findings): Nonepresent No suspicious nonpulmonary findings. RECOMMENDATIONS: 12 [address] screening low dose [address] -------- FINAL REPORT -------- Dictated By: Onesimo Sheldon Dictated Date: 06/19/2025 06:55 ET Assigned Physician: Onesimo Sheldon Reviewed and Electronically Signed By: Onesimo Sheldon Signed Date: 06/19/2025 07:04 ET Workstation ID: [id number] Transcribed By: Self Edit Transcribed Date: 06/19/2025 06:55 ET Parker Chambers MD [facility] CT PROCEDURES Final Result from Last 3 Months Insurance [employer] [place] - [place] Care Teams Modeling Teacher Relationship Specialty Start Date End Date Yenifer Woods MD [address] [place] [address] PCP - General 03/31/24
== END 2025-07-30 13:46 | disposition home or self-care (01) ==
LOC: HO.PMC 13:14
PROVIDERS: PCP Internal Medicine; Visit Provider Anesthesiology
DX: M51.369 Other intervertebral disc degeneration, lumbar region without mention of lumbar back pain or lower extremity pain (principal); G35.D Multiple sclerosis, unspecified; G89.4 Chronic pain syndrome; Z79.891 Long term (current) use of opiate analgesic; Z45.1 Encounter for adjustment and management of infusion pump
CPT/HCPCS: 62370

== ENCOUNTER → 2025-07-30 13:13 | Outpatient (BNVA) | payer MEDICARE, MEDICAID, SELFPAY | PROVIDERS: PCP Internal Medicine; Visit Provider Anesthesiology | DX: M51.360 Other intervertebral disc degeneration, lumbar region with discogenic back pain only (principal); G89.4 Chronic pain syndrome; Z79.891 Long term (current) use of opiate analgesic | CPT/HCPCS: 62370 ==